=== PATIENT | male | born 2000 | race Two or more races ===

== ENCOUNTER 2020-10-13 10:52 | Emergency (ER) | payer SELFPAY ==
[~2020-10-13] VITALS: Ht 167.6 cm; Wt 79.4 kg
[2020-10-13 11:10] VITALS: BP 123/75
--- NOTE | 2020-10-13 11:10 | NUR ---
pt fell onto a fence today and cut his right thigh open. approx 4 inch laceration and approx 1 inch wide. no bleeding noted, pt had a bandana wrapped above the wound. small bits of debris noted in the lac, cleansed with sterile water. pt tolerated, asked several times if pt needed pain meds and he declined.
--- NOTE | 2020-10-13 11:14 | Emergency Room Report ---
History of Present Illness General Chief Complaint: Laceration Source: Patient Present Illness HPI Disclaimer: Please note that this report is being documented using [employer] technology. This can lead to erroneous entry secondary to incorrect interpretation by the dictating instrument. HPI: 20-year-old male presents for laceration of the right knee. Patient was cleaning a fence fell and lacerated just superior to the patella. Does not extend into musculature or involve ligament. Ambulating without difficulty. Cannot recall last tetanus update. Denies foreign body sensation. No cleaning prior to arrival. No other injury sustained. PMH: Reviewed PSH: Reviewed Allergies: Reviewed Social Hx: Reviewed Allergies: Coded Allergies: No Known Allergies (Unverified , 10/13/20) COVID-19 Screening Contact w/high risk pt: No Experienced COVID-19 symptoms?: No COVID-19 Testing performed SILK PRINTER: No Nursing Documentation-PMH Past Medical History: No Stated History Review of Systems All Other Systems: negative except mentioned in HPI Physical Exam Vital Signs Date Time Temp Pulse Resp B/P (MAP) Pulse Ox O2 Delivery O2 Flow Rate FiO2 10/13/20 11:02 98.4 82 16 123/75 (91) 97 Room Air General: Awake and alert, no acute distress HEENT: NC/AT. EOMI. Resp: Normal work of breathing Skin: 5 cm laceration horizontally oriented extending into the subcutaneous tissue but not into musculature or with visible ligaments. Located just above the patella on the right side. Hemostatic. No foreign body identified. MSK: Normal tone and bulk. Moving all extremities. No obvious deformity. Full range of motion of the right knee. Able to bear weight without difficulty. No instability noted. Neuro: Awake and alert. Mentating appropriately Procedures Laceration/Wound Repair Laceration/Wound Repair : Consent: Verbal Wound Location: lower extremity Wound's Depth, Shape: superficial, linear Wound Length (cm): 5 Wound Explored: contaminated Irrigated w/ Saline (ccs): 1000 Betadine Prep?: Yes Anesthesia: Lidocaine w/ Epi Volume Anesthetic (ccs): 20 Wound Debrided: None Wound Repaired With: ismael Number of Sutures: 12 Layer Closure?: Yes Deep Layer Suture Size/Type: 3:0, other - Vicryl Number Deep Layer Sutures: 1 Sterile Dressing Applied?: Yes Patient Tolerated: Well Complications: None Medical Decision Making Diagnostic Impression: Primary Impression: Laceration ER Course 20-year-old male presents with laceration of the right lower extremity while cleaning a fence. Tetanus updated. No foreign body seen on x-ray. Patient had wound irrigated under pressure 1000 cc saline. Moderate debris removed. Does not require debridement. Approximates well. 1 simple interrupted 3-0 Vicryl stitch was placed in the deep tissue as well as a running Vicryl stitch to obtain superficial approximation. 12 ismael placed to close the surface skin. Tolerated procedure well with no complications. Bearing weight and ambulating without difficulty. Bacitracin cream applied to wound, nonadhesive bandage, gauze wrap. Patient will be started on Keflex as there was moderate debris cleaned from the wound. Will return for staple removal next week. Instructed to return new or worsening symptoms sooner. Other X-Ray Diagnostic Results Other X-Ray Diagnostic Results : X-Ray ordered: Knee right # of Views/Limited Vs Complete: 3 View Indication: Pain EP Interpretation: Yes Interpretation: no dislocation, no fractures, other - Soft tissue laceration without radiopaque foreign bodies Impression: Other - Soft tissue laceration without radiopaque foreign bodies Electronically Signed by: Electronically signed by Dr. Jamie Frederick MD Last Vital Signs Date Time Temp Pulse Resp B/P (MAP) Pulse Ox O2 Delivery O2 Flow Rate FiO2 10/13/20 11:02 98.4 82 16 123/75 (91) 97 Room Air Disposition: HOME, SELF-CARE Condition: Stable Scripts Cephalexin* (KEFLEX*) 500 Mg Capsule 500 MG ORAL EVERY 12 HOURS, #14 CAP 0 Refills Prov: Jamie Frederick MD 10/13/20 Jamie Frederick MD Oct 13, 2020 11:14
[2020-10-13] MEDS ORDERED: Lidocaine 1%/ 10mg/ml/EPI 0.01mg/ml 20ml INJ ONE (11:15)
[2020-10-13] MEDS ORDERED: Tetanus/Diptheria/Pertussis IM ONE (11:15)
[2020-10-13] MEDS ORDERED: CEPHALEXIN500 MG ORAL (12:12)
--- NOTE | 2020-10-13 12:37 | NUR ---
ER DISCHARGE NOTE: Patient is cleared to be discharged per ERMD, pt is aox4, on room air, with stable vital signs. pt was given dc and prescription instructions, pt was able to verbalize understanding, pt id band removed. placed ointment, non stick dressing to wound with kerlex and tape.pt is able to ambulate with steady gait. pt took all belongings.
--- NOTE | 2020-10-13 12:41 | Diagnostic Imaging Report ---
EXAM: XR Right Knee, 3 Views CLINICAL HISTORY: INJ TECHNIQUE: Three views of the right knee. COMPARISON: None FINDINGS: Bones/joints: No displaced fracture or dislocation identified. Joint effusion. Soft tissues: Soft tissue laceration involving the anterior distal right thigh. IMPRESSION: 1. Soft tissue laceration involving the anterior distal right thigh. 2. No displaced fracture or dislocation identified.
[2020-10-13] MEDS ORDERED: Bacitracin Oint 15gm Tube TOPIC SCH (13:00)
== END 2020-10-13 12:30 | disposition home or self-care (01) ==
LOC: EMR 11:45
DX: S81.011A Laceration without foreign body, right knee, initial encounter (principal); W01.0XXA Fall on same level from slipping, tripping and stumbling without subsequent striking against object, initial encounter; Y93.H9 Activity, other involving exterior property and land maintenance, building and construction; Y92.9 Unspecified place or not applicable
CPT/HCPCS: 90471; 90715; 99283